=== PATIENT | female | born 1980 | race Caucasian/White ===

== ENCOUNTER → 2020-01-21 15:15 | Outpatient (BNVA) | payer MEDICAID, SELFPAY | PROVIDERS: PCP Nurse Practitioner Family; Visit Provider Psychiatry & Neurology Psychiatry | DX: F43.12 Post-traumatic stress disorder, chronic (principal); F33.2 Major depressive disorder, recurrent severe without psychotic features; F15.21 Other stimulant dependence, in remission; F10.21 Alcohol dependence, in remission | CPT/HCPCS: 99204 ==

== ENCOUNTER → 2020-07-15 11:58 | Outpatient (BNVA) | payer MEDICAID, SELFPAY | PROVIDERS: PCP Nurse Practitioner Family; Visit Provider Emergency Medicine | DX: M25.571 Pain in right ankle and joints of right foot (principal) | CPT/HCPCS: 73610; 73630 ==

== ENCOUNTER 2020-09-05 21:13 | Emergency (ER) | payer MEDICAID, SELFPAY ==
[2020-09-05 21:30] VITALS: BP 156/61; PULSE 104; RESP 14; TEMP 37.8; O2SAT 96; BMI 44.2
--- NOTE | 2020-09-05 22:25 | XR_ITS ---
WS: [id number] XR chest 1V portable [id number] REASON FOR EXAM: sob FINDINGS: The chest is unchanged compared to previous examination of 06/14/2017. The heart and mediastinum are within normal limits. No active pulmonary parenchymal or pleural disease noted. Multiple old healed left rib fractures. XR/XR chest 1V portable [id number] IMPRESSION: No acute chest abnormality.
--- NOTE | 2020-09-05 22:26 | ECG_ITS ---
[facility] Test Date: 2020-10-18 Pat Name: Yesi Valdivia Department: Room: Gender: Female Medical Collections: : [id number] Requested By: Levar Link Order Number: [id number] Tony MD: Emilia Hendrix M.D. Measurements Intervals [place] Rate: 77 P: 57 SC: 155 QRS: 10 QRSD: 100 T: 17 QT: 334 QTc: 378 Interpretive Statements SINUS RHYTHM WITH SINUS ARRHYTHMIA POSSIBLE RIGHT VENTRICULAR CONDUCTION DELAY [RSR (QR) IN V1/V2] Compared to ECG 03/25/2017 14:27:28 No significant changes Electronically Signed On 10-18-2020 20:29:40 DIRECTOR OUTCOMES by Emilia Hendrix M.D. [email or web address]
--- NOTE | 2020-09-05 22:55 | ED_ITS ---
HPI - COVID General: Chief Complaint: COVID symptoms Stated Complaint: covid symptom/sob/cough Time Seen by Provider: 09/05/20 22:51 Triage information: Has fever, cough or shortness of breath . No known COVID + exposure last 14 days History of Present Illness: HPI Narrative: Patient is a 40-year-old female comes to the ED with upper respiratory symptoms. She says symptoms started approximately 2 days ago. She is complaining of having a dry cough, fever, nasal drainage, nausea vomiting. She says that she has an inhaler at home, but lost it. COVID 19 common symptoms: positive fever(s), chills, non-productive cough, fatigue, body aches, nasal congestion and nausea; negative productive cough, dyspnea, headache(s), throat pain, vomiting or diarrhea COVID 19 other sytmptoms: negative chest pain COVID Results: Nasal/Oral Coronavirus 2019 PCR Pending 09/05/20 23:32 09/05/20 Review of Systems Const: Reports: fever(s), chills, body aches and fatigue Eyes: Denies: change in vision or eye discomfort ENMT: Reports: nasal discharge and nasal congestion; Denies: throat pain, odynophagia or ear or mastoid pain Card: Denies: chest pain, palpitations, edema, swelling of feet/ankles, dyspnea on exertion or orthopnea Resp: Reports: non-productive cough; Denies: dyspnea or productive cough GI: Reports: nausea; Denies: abdominal pain, vomiting, diarrhea, constipation or hematochezia : Denies: flank pain, dysuria or hematuria Musc: Denies: neck pain, back pain or extremity swelling Skin/Breast: Denies: rash or new lesions Neuro: Denies: headache(s), numbness in extremities or weakness in extremities PFSH ED PFSH: Social History Smoking and tobacco status: never smoked Alcohol intake: current Alcohol intake frequency: holidays/special occasions only Desire information about alcohol rehabilitation?: No History of recent travel: No Current gender identity: Female Female Reproductive History: Spontaneous abortions: No Physical Exam Const: COMMON NORMALS: patient oriented x3 and alert GENERAL APPEARANCE: cooperative NUTRITIONAL APPEARANCE: obese morbidly obese HENMT: COMMON NORMALS: normocephalic HEAD & SCALP: normocephalic MOUTH: Normal oral and palatal mucosa present THROAT: posterior oropharynx normal and uvula midline Eye: COMMON NORMALS: Equal, round and reactive pupils present PUPIL: Yes Equal, round and reactive pupils present Neck/C-Spine: COMMON NORMALS: supple GENERAL: Yes normal visual inspection Resp: COMMON NORMALS: normal respiratory effort, No retractions and No use of accessory muscles EFFORT & INSPECTION: Yes able to speak in complete sentences, No tachypneic, No respiratory distress, No labored and Yes Actively coughing dry AUSCULTATION: diminished lung sounds bilateral in the lower lung johns Cardio: COMMON NORMALS: regular rate, regular rhythm, S1 normal heart sound present, S2 normal heart sound present, No gallops present (Cardio), No clicks present (Cardio), No murmurs present (Cardio) and Peripheral pulses 2+ throughout RATE: regular rate RHYTHM: regular rhythm HEART SOUNDS: S1 normal heart sound present and S2 normal heart sound present PERIPHERAL PULSES: Peripheral pulses 2+ throughout GI: COMMON NORMALS: Normal to inspection, nondistended, normoactive bowel sounds present, Soft to palpation, non-tender and no masses INSPECTION: Yes central obesity PALPATION: Yes Soft to palpation : COMMON NORMALS: Yes no CVA tenderness BLADDER/KIDNEY EXAM: Yes no CVA tenderness Back/Pelvis: COMMON NORMALS: no CVA tenderness Extremity: COMMON NORMALS: normal to inspection and no pedal edema Neuro: COMMON NORMALS: patient oriented x3 and moves all extremities SENSORIUM/ORIENTATION: Yes alert Skin: GENERAL SKIN EXAM: dry skin Course Reevaluation(s): Reevaluation #1: Patient's lung sounds improved at the bases bilaterally after albuterol treatment. She also states she is feeling a lot better now that she is gotten some IV fluids. Vital Signs: Vital signs: Vital Signs Temperature 100.1 F H 09/05/20 21:30 Pulse Rate 105 H 09/06/20 01:40 Respiratory Rate 18 09/06/20 01:40 Blood Pressure 97/79 09/06/20 01:40 Pulse Oximetry 92 09/06/20 01:40 MDM - COVID MDM Narrative Medical decision making narrative: Patient is a 40-year-old female comes to the ED with upper respiratory infection symptoms. Lung sounds diminished at bases bilaterally. No signs of respiratory distress. White blood cell count 13.4 and rest of CBC and CMP was unremarkable. Troponin was negative. EKG showed normal sinus rhythm with no ST segment elevation or depression seen. hCG negative. Influenza negative and Covid testing pending. Patient was given an albuterol inhaler treatment while here in the ED and lung sounds improved afterwards. Patient given IV fluids, Solu-Medrol and first dose of azithromycin. Patient stable for discharge. Patient diagnosed with bronchitis and upper respiratory infection and sent home with a prescription of prednisone, azithromycin, Tessalon Perles, Zofran and albuterol inhaler. She was given self quarantine instructions and told that results should be back in 2 to 3 days. Return to ED precautions given. Patient understood and agree with plan. Lab Data Attestation: I reviewed the patient's lab results. Result diagrams: 09/06/20 00:05 09/06/20 00:05 Labs: Lab Results 09/05/20 09/05/20 09/06/20 Range/Units 21:16 23:32 00:05 WBC 13.4 H (4.0-10.0) 10^3/uL RBC 4.68 (4.1-5.3) 10^6/uL Hgb 12.6 (11.5-15.3) g/dL Hct 40.7 (37.0-47.0) % MCV 87.0 (81-99) fL MCH 26.9 L (28.0-34.0) pg MCHC 31.0 (30.0-36.0) g/dL RDW 15.0 (12.1-15.1) % Plt Count 619 H (130-400) 10^3/cmm MPV 10.6 H (7.4-10.4) fL Neut % (Auto) 69.0 % Lymph % (Auto) 18.0 % [place] % (Auto) 10.7 % Eos % (Auto) 1.5 % Baso % (Auto) 0.5 % Neut # (Auto) 9.22 H (1.8-7.7) 10^3/uL Lymph # (Auto) 2.4 (0.8-4.8) 10^3/uL [place] # (Auto) 1.4 H (0.2-0.9) 10^3/uL Eos # (Auto) 0.2 (0.0-0.8) 10^3/uL Baso # (Auto) 0.1 (0.0-0.1) 10^3/uL Nucleated RBC % (auto) 0 % Nucleated RBCs # 0.0 /100WBC Sodium (136-145) mmol/L Potassium (3.5-5.1) mmol/L Chloride (98-107) mmol/L Carbon Dioxide (22-29) mmol/L Anion Gap (5-19) BUN (6-20) mg/dL Creatinine (0.5-0.9) mg/dL GFR Calculation (90-130) mL/min Glucose (65-115) mg/dL Calculated Osmolality (285-295) mOsm/kg Calcium (8.5-10.5) mg/dL Total Bilirubin (0.15-1.2) mg/dL AST (0-32) U/L ALT (0-33) U/L Alkaline Phosphatase (35-105) IU/L Troponin T Baseline (0-10) ng/L NT-Pro-B Natriuret Pep Total Protein (6.6-8.7) g/dL Albumin (3.5-5.2) g/dL Globulin (1.3-4.6) g/dL HCG, Qual (Negative) Urine Color Yellow (Yellow) Urine Appearance Sl hazy (CLEAR) Urine pH 8 H (5-7) Ur Specific Sharon 1.005 (1.005-1.030) Urine Protein Neg (Negative) Urine Glucose (UA) Norm (Normal) Urine Ketones Negative (Negative) Urine Blood Neg (Negative) Urine Nitrate Negative (Negative) Urine Bilirubin Neg (Negative) Urine Urobilinogen Norm (Negative) mg/dL Ur Leukocyte Esterase Trace H (Negative) Urine RBC 0-4 H (0-2) /hpf Urine WBC 5-10 H (0-5) /hpf Ur Squamous Epith Cells 15-25 H (0-5) /hpf Amorphous Sediment Not Reportable Urine Bacteria Trace (NONE) /hpf Influenza Type A Ag Negative (Negative) Influenza Type B Ag Negative (Negative) 09/06/20 09/06/20 09/06/20 Range/Units 00:05 00:05 00:05 WBC (4.0-10.0) 10^3/uL RBC (4.1-5.3) 10^6/uL Hgb (11.5-15.3) g/dL Hct (37.0-47.0) % MCV (81-99) fL MCH (28.0-34.0) pg MCHC (30.0-36.0) g/dL RDW (12.1-15.1) % Plt Count (130-400) 10^3/cmm MPV (7.4-10.4) fL Neut % (Auto) % Lymph % (Auto) % [place] % (Auto) % Eos % (Auto) % Baso % (Auto) % Neut # (Auto) (1.8-7.7) 10^3/uL Lymph # (Auto) (0.8-4.8) 10^3/uL [place] # (Auto) (0.2-0.9) 10^3/uL Eos # (Auto) (0.0-0.8) 10^3/uL Baso # (Auto) (0.0-0.1) 10^3/uL Nucleated RBC % (auto) % Nucleated RBCs # /100WBC Sodium 134 L (136-145) mmol/L Potassium 4.4 (3.5-5.1) mmol/L Chloride 98 (98-107) mmol/L Carbon Dioxide 28 (22-29) mmol/L Anion Gap 12.4 (5-19) BUN 9 (6-20) mg/dL Creatinine 0.7 (0.5-0.9) mg/dL GFR Calculation 92.7 (90-130) mL/min Glucose 98 (65-115) mg/dL Calculated Osmolality 277 L (285-295) mOsm/kg Calcium 9.3 (8.5-10.5) mg/dL Total Bilirubin 0.2 (0.15-1.2) mg/dL AST 13 (0-32) U/L ALT 13 (0-33) U/L Alkaline Phosphatase 94 (35-105) IU/L Troponin T Baseline 6 (0-10) ng/L NT-Pro-B Natriuret Pep Cancelled Total Protein 7.6 (6.6-8.7) g/dL Albumin 3.6 (3.5-5.2) g/dL Globulin 4.0 (1.3-4.6) g/dL HCG, Qual Negative (Negative) Urine Color (Yellow) Urine Appearance (CLEAR) Urine pH (5-7) Ur Specific [place] (1.005-1.030) Urine Protein (Negative) Urine Glucose (UA) (Normal) Urine Ketones (Negative) Urine Blood (Negative) Urine Nitrate (Negative) Urine Bilirubin (Negative) Urine Urobilinogen (Negative) mg/dL Ur Leukocyte Esterase (Negative) Urine RBC (0-2) /hpf Urine WBC (0-5) /hpf Ur Squamous Epith Cells (0-5) /hpf Amorphous Sediment Urine Bacteria (NONE) /hpf Influenza Type A Ag (Negative) Influenza Type B Ag (Negative) COVID Results: Nasal/Oral Coronavirus 2019 PCR Pending 09/05/20 23:32 09/05/20 Imaging Data CXR: Attestation: I personally reviewed and interpreted this imaging study as follows: My impression: No acute findings. EKG Data EKG 1: Attestation: I personally reviewed and interpreted this EKG as follows: EKG interpretation date: 09/06/20 Interpretation: Normal sinus rhythm, [address] segment elevation or depression seen. Discharge Plan Discharge Patient Disposition: Home Clinical Impression: Bronchitis, Upper respiratory infection with cough and congestion Condition: Stable Prescriptions: New albuterol sulfate 90 mcg/actuation aerosol powdr breath activated 2 inh INHALATION Q6H PRN (Reason: shortness of breath or wheezing) Qty: 1 RF: 0 Medrol ([place]) 4 mg tablets,dose pack See Rx Instructions .ROUTE .COMPLEX Qty: 21 RF: 0 azithromycin 250 mg tablet 250 mg PO DAILY 4 Days Qty: 4 RF: 0 Zofran 4 mg tablet 4 mg PO Q8H Qty: 20 RF: 0 Tessalon Perles 100 mg capsule 100 mg PO BID PRN (Reason: cough) Qty: 30 RF: 0 No Action valsartan [Diovan] 40 mg tablet ? mg PO BID RF: 0 Latuda 20 mg tablet 10 mg PO .HS Qty: 15 RF: 2 naltrexone 50 mg tablet 50 mg PO DAILY Qty: 30 RF: 2 topiramate [Topamax] 25 mg tablet 25 mg PO BID Qty: 60 RF: 2 trazodone 50 mg tablet 50 mg PO .HS Qty: 30 RF: 2 mupirocin 2 % ointment 1 applic TOPICAL TID Qty: 15 RF: 1 Discharge Orders: Discharge Order (Routine); Ordered 09/06/20 Ordered By: Nikolay Ortega Discharge Diet: Regular Discharge Activity: Limit activity as instructed Patient Instructions: Upper Respiratory Infection (ED), Acute Bronchitis (ED) Activity Restrictions/Additional Instructions: Follow-up with medical provider as directed in 7-10 days. Take medications as prescribed. COVID testing was performed and sent to lab and results will be back in 2 to 3 days. Self quarantine for the next 3 days or up to 12 days pending on COVID testing results. Contact [facility] in 2 to 3 days to get results or [facility] will contact you with results. Take ibuprofen or Tylenol for fevers. Drink plenty of fluids and stay hydrated. Symptom management with [id number] cough and nasal decongestant meds. Return to the ER or your medical provider if condition worsens. Please read and understand discharge instructions. If any questions, please ask. Coding Level of Care Code ED Sprinkling System Irrigator for Heidi Fwd Exam Comprehensive
[2020-09-05 23:26] LABS: Add Urine Microscopic? YES; Bilirubin Urine Neg (Negative); Blood Urine Neg (Negative); Glucose Urine UA Norm (Normal); Ketones Urine Negative (Negative); Leukocyte Esterase Urine Trace (Negative); Nitrate Urine Negative (Negative); Protein Urine Neg (Negative); Specific Gravity, Urine 1.005 (1.005-1.030); Urine Appearance SL Hazy (CLEAR); Urine Color Yellow (Yellow); Urobilinogen Urine Norm (Negative); pH Urine 8 (5-7)
[2020-09-05 23:28] LABS: Add Urine Culture? No; Bacteria Urine TRACE /hpf; RBC Urine 0-4 /hpf (0-2); Squamous Epithelial Cell Urine 15-25 /hpf (0-5)
[2020-09-05 23:30] VITALS: BP 132/77; PULSE 83; RESP 18; O2SAT 92
[2020-09-05 23:58] VITALS: O2SAT 92
[2020-09-06] VITALS (21 sets, daily range): BP systolic 97–156; BP diastolic 74–88; PULSE 93–105; RESP 18–22; O2SAT 85–94
[2020-09-06 00:15] LABS: Influenza A by IFA Negative (Negative); Influenza B by IFA Negative (Negative)
[2020-09-06] MEDS: ondansetron 2 mg/ML SDV 2 mL 4 MG IVP (00:22)
[2020-09-06] MEDS: ibuprofen 600 mg Tablet PO (00:22)
[2020-09-06] MEDS: sodium chloride 0.9% 500 ML IV (00:22)
[2020-09-06 00:29] LABS: Basophils # 0.1 10^3/uL (0.0-0.1); Basophils % 0.5 %; Eosinophils # 0.2 10^3/uL (0.0-0.8); Eosinophils % 1.5 %; Hematocrit 40.7 % (37.0-47.0); Hemoglobin 12.6 g/dL (11.5-15.3); Lymphocytes # 2.4 10^3/uL (0.8-4.8); Mean Corpuscular Hemoglobin 26.9 pg (28.0-34.0); Mean Platelet Volume 10.6 fL (7.4-10.4); Monocytes # 1.4 10^3/uL (0.2-0.9); Monocytes % 10.7 %; Neutrophils # 9.22 10^3/uL (1.8-7.7); Nucleated Red Blood Cells % 0 %; Platelet Count 619 10^3/cmm (130-400); Red Blood Count 4.68 10^6/uL (4.1-5.3); White Blood Count 13.4 10^3/uL (4.0-10.0)
[2020-09-06] MEDS: albuterol 8 gm MDI 2 PUFF INHALATION (00:29)
[2020-09-06 00:37] LABS: HCG, Serum Qual Negative (Negative)
[2020-09-06 00:47] LABS: Troponin(5th) Baseline 6 ng/L (0-10)
[2020-09-06 00:56] LABS: Alanine Aminotransferase 13 U/L (0-33); Albumin Level 3.6 g/dL (3.5-5.2); Alkaline Phosphatase 94 IU/L (35-105); Anion Gap 12.4 (5-19); Aspartate Amino Transferase 13 U/L (0-32); Blood Urea Nitrogen 9 mg/dL (6-20); Calcium 9.3 mg/dL (8.5-10.5); Carbon Dioxide 28 mmol/L (22-29); Chloride 98 mmol/L (98-107); Glomerular Filtration Rate 92.7 mL/min (90-130); Glucose 98 mg/dL (65-115); Osmolality Calculated 277 mOsm/kg (285-295); Potassium 4.4 mmol/L (3.5-5.1); Sodium 134 mmol/L (136-145); Total Bilirubin 0.2 mg/dL (0.15-1.2); Total Protein 7.6 g/dL (6.6-8.7)
[2020-09-06] MEDS: azithromycin 250 mg Tablet 500 MG PO (01:30)
[2020-09-07 06:10] LABS: Coronavirus Lab Test PTC Negative
== END 2020-09-06 01:43 | disposition home or self-care (01) ==
PROVIDERS: Emergency Medicine; Emergency Provider Physician Assistant
DX: J40 Bronchitis, not specified as acute or chronic (principal); J06.9 Acute upper respiratory infection, unspecified
CPT/HCPCS: 12345; 36415; 71045; 80053; 81001; 84484; 84703; 85025; 87040; 87635; 87804; 93005; 94640; 96361; 96374; 96375; 99284; J2405; J2930; J3535; J7040; Q0144

== ENCOUNTER 2021-08-26 07:27 | Outpatient (CLI) | payer MEDICAID, SELFPAY | END 2021-08-26 07:28 | disposition home or self-care (01) | LOC: SLEEP 07:27 | PROVIDERS: Visit Provider Nurse Practitioner Family | DX: E66.01 Morbid (severe) obesity due to excess calories (principal); R06.83 Snoring; R40.0 Somnolence; G47.33 Obstructive sleep apnea (adult) (pediatric) | CPT/HCPCS: 95810 ==

== ENCOUNTER 2021-09-29 20:00 | Outpatient (CLI) | payer MEDICAID, SELFPAY | END 2021-09-29 20:01 | disposition home or self-care (01) | LOC: SLEEP 09-30 06:52 | PROVIDERS: PCP Nurse Practitioner Family; Visit Provider Internal Medicine Critical Care Medicine | DX: G47.33 Obstructive sleep apnea (adult) (pediatric) (principal) | CPT/HCPCS: 95811 ==

== ENCOUNTER → 2022-02-01 09:00 | Outpatient (BNVA) | payer MEDICAID, SELFPAY | PROVIDERS: PCP Nurse Practitioner Family; Visit Provider Internal Medicine Critical Care Medicine | DX: G47.33 Obstructive sleep apnea (adult) (pediatric) (principal); G47.34 Idiopathic sleep related nonobstructive alveolar hypoventilation; J45.909 Unspecified asthma, uncomplicated; E66.01 Morbid (severe) obesity due to excess calories; Z87.891 Personal history of nicotine dependence; I10 Essential (primary) hypertension | CPT/HCPCS: 99214 ==

== ENCOUNTER 2022-10-06 17:10 | Emergency (ER) | payer MEDICAID, SELFPAY ==
[2022-10-06 17:25] VITALS: BP 161/76; PULSE 110; RESP 16; TEMP 37.5; O2SAT 93; BMI 53.6
--- NOTE | 2022-10-06 18:47 | XRR_ITS ---
PROCEDURE INFORMATION: Exam: XR Chest Exam date and time: 10/06/2022 6:55 PM Age: 42 years old Clinical indication: Shortness of breath; Additional info: SOB TECHNIQUE: Imaging protocol: Radiologic exam of the chest. Views: 1 view. COMPARISON: CR XR chest 1V portable [id number] 09/05/2020 10:48 PM FINDINGS: Lungs: Unremarkable. No consolidation. Pleural spaces: Unremarkable. No pleural effusion. No pneumothorax. Heart/Mediastinum: Unremarkable. No cardiomegaly. Bones/joints: Unremarkable. XR/XR chest 1V portable [id number] IMPRESSION: No acute findings.
--- NOTE | 2022-10-06 18:49 | ED_ITS ---
HPI - General Adult General: Chief complaint: Upper Respiratory Infection Stated complaint: cough,SOB Time Seen by Provider: 10/06/22 18:44 Source: patient Mode of arrival: ambulatory Limitations: no limitations History of Present Illness: 42-year-old female who has had cough congestion along with fever over the last 2 days states she has had some shortness of breath with a cough. Has been nonproductive she had no sick contacts denies any worsening proving factors she denies any pain. Associated symptoms: Deny chest pain, headache(s), nausea, rash or vomiting Review of Systems Const: Reports: fever(s) and body aches Eyes: Denies: blurry vision or eye discomfort ENMT: Denies: throat pain or dental pain Card: Denies: chest pain Resp: Reports: non-productive cough GI: Denies: abdominal pain, nausea, vomiting or diarrhea : Denies: dysuria Musc: Denies: neck pain or back pain Skin/Breast: Denies: rash Neuro: Denies: headache(s) Psych: Denies: depression Wes/Lymph: Denies: easy bruising All/Imm: Denies: urticaria PFSH ED PFSH: Medical History Asthma Borderline diabetic Hypertension Obesity Surgical History H/O arthroscopic knee surgery H/O hernia repair H/O tubal ligation History of ankle surgery S/P appendectomy S/P cholecystectomy S/P tonsillectomy and adenoidectomy Social History Smoking and tobacco status: former smoker Alcohol intake: former Desire information about alcohol rehabilitation?: No History of recent travel: No Current gender identity: Female Female Reproductive History: Spontaneous abortions: No Physical Exam Const: COMMON NORMALS: no acute distress, patient oriented x3 and healthy appearing HENMT: COMMON NORMALS: normocephalic and atraumatic HEAD & SCALP: normocephalic and atraumatic Eye: COMMON NORMALS: Equal, round and reactive pupils present and EOMs intact bilaterally PUPIL: Yes Equal, round and reactive pupils present Neck/C-Spine: COMMON NORMALS: full ROM and supple Chest: COMMONS NORMALS: normal inspection of the chest and normal palpation of entire chest wall Resp: COMMON NORMALS: normal respiratory effort, No retractions, No use of accessory muscles and clear to auscultation bilaterally AUSCULTATION: clear to auscultation bilaterally Cardio: COMMON NORMALS: regular rate, regular rhythm and No murmurs present (Cardio) RATE: regular rate RHYTHM: regular rhythm GI: COMMON NORMALS: Normal to inspection, nondistended, normoactive bowel sounds present, Soft to palpation, non-tender and no masses PALPATION: Yes Soft to palpation Extremity: COMMON NORMALS: normal to inspection and full ROM Neuro: COMMON NORMALS: patient oriented x3, moves all extremities and no focal motor deficits Psych: COMMON NORMALS: mental status grossly normal, Normal thought process present and cooperative THOUGHT PROCESS: Normal thought process present Skin: COMMON NORMALS: no rashes or lesions noted and no wounds GENERAL SKIN EXAM: no rashes or lesions noted Course Vital Signs: Vital signs: Vital Signs Temperature 99.5 F 10/06/22 17:25 Pulse Rate 108 H 10/06/22 19:32 Respiratory Rate 18 10/06/22 19:30 Blood Pressure 161/76 10/06/22 17:25 Pulse Oximetry 91 10/06/22 19:30 Oxygen Delivery Me thod 10/06/22 19:30 MDM - General Adult Medical Decision Making Patient presents here with cough congestion did test positive for influenza she is well-appearing here she is in no distress she is stable for discharge she is to follow-up with PCP and return if worsening. Lab Data 10/06/22 19:09 10/06/22 19:09 Radiology Impressions Chest X-Ray 10/06/22 18:47 IMPRESSION: No acute findings. ADDENDUM: 10/06/221928 There is asymmetric prominence of the mediastinum along the right paratracheal region. This is a nonspecific finding and may be incidental, but was not seen on prior study. This can be further evaluated with CTA of the chest. Laboratory Results WBC 13.4 10^3/uL (4.0-10.0) H 10/06/22 19:09 RBC 4.73 10^6/uL (4.1-5.3) 10/06/22 19:09 Hgb 12.8 g/dL (11.5-15.3) 10/06/22 19:09 Hct 40.7 % (37.0-47.0) 10/06/22 19:09 MCV 86.0 fl (81-99) 10/06/22 19:09 MCH 27.1 pg (28.0-34.0) L 10/06/22 19:09 MCHC 31.4 g/dL (30.0-36.0) 10/06/22 19:09 RDW 15.9 % (12.1-15.1) H 10/06/22 19:09 Plt Count 554 10^3/cmm (130-400) H 10/06/22 19:09 MPV 10.2 fL (7.4-10.4) 10/06/22 19:09 Neut % (Auto) 80.8 % 10/06/22 19:09 Lymph % (Auto) 6.8 % 10/06/22 19:09 [place] % (Auto) 7.5 % 10/06/22 19:09 Eos % (Auto) 3.3 % 10/06/22 19:09 Baso % (Auto) 0.5 % 10/06/22 19:09 Neut # (Auto) 10.84 10^3/uL (1.8-7.7) H 10/06/22 19:09 Lymph # (Auto) 0.9 10^3/uL (0.8-4.8) 10/06/22 19:09 [place] # (Auto) 1.0 10^3/uL (0.2-0.9) H 10/06/22 19:09 Eos # (Auto) 0.4 10^3/uL (0.0-0.8) 10/06/22 19:09 Baso # (Auto) 0.1 10^3/uL (0.0-0.1) 10/06/22 19:09 Nucleated RBC % (auto) 0 % 10/06/22 19: Nucleated RBCs # 0.0 /100WBC 10/06/22 19:09 Sodium 138 mmol/L (136-145) 10/06/22 19:09 Potassium 3.8 mmol/L (3.5-5.1) 10/06/22 19:09 Chloride 104 mmol/L (98-107) 10/06/22 19:09 Carbon Dioxide 24 mmol/L (22-29) 12/09/22 19:09 Anion Gap 13.8 (5-19) 10/06/22 19:09 BUN 9 mg/dL (6-20) 10/06/22 19:09 Creatinine 0.6 mg/dL (0.5-0.9) 10/06/22 19:09 GFR Calculation 109.6 mL/min (90-130) 10/06/22 19:09 Glucose 87 mg/dL (65-115) 10/06/22 19:09 Calculated Osmolality 284 mOsm/kg (285-295) L 10/06/22 19:09 Calcium 9.4 mg/dL (8.5-10.5) 10/06/22 19:09 Total Bilirubin 0.2 mg/dL (0.15-1.2) 10/06/22 19:09 AST 11 U/L (0-32) 10/06/22 19:09 ALT 10 U/L (0-33) 10/06/22 19:09 Alkaline Phosphatase 83 U/L (35-105) 10/06/22 19:09 NT-Pro-B Natriuret Pep 136 pg/mL (0-125) H 10/06/22 19:09 Total Protein 8.1 g/dL (6.6-8.7) 10/06/22 19:09 Albumin 3.4 g/dL (3.5-5.2) L 10/06/22 19:09 Globulin 4.7 g/dL (1.3-4.6) H 10/06/22 19:09 Influenza Type A Ag positive (Negative) H 10/06/22 19:10 Influenza Type B Ag negative (Negative) 10/06/22 19:10 Discharge Plan Discharge Patient Disposition: Home Clinical Impression: Influenza Condition: Stable Prescriptions: No Action topiramate 50 mg tablet 50 mg PO BID norethindrone acetate 5 mg tablet 5 mg PO DAILY valsartan-hydrochlorothiazide 160-12.5 mg tablet 1 tab PO DAILY olanzapine 5 mg tablet 5 mg PO DAILY albuterol sulfate [ProAir HFA] 90 mcg/actuation HFA aerosol inhaler 2 puff inhalation Q6H PRN promethazine 6.25 mg/5 mL syrup 6.25 mg PO TID PRN Rx Instructions: 3 doses during day; last dose no later than 4 hr before bedtime fluticasone propionate [Flonase Allergy Relief] 50 mcg/actuation spray,suspension 1 spray intranasal Q12H 30 Days Qty: 16 6RF Rx Instructions: administer into each nostril Discharge Orders: Discharge ED (Routine); Ordered 10/06/22 Ordered By: Anthony Daniel Discharge Diet: Advance as tolerated Discharge Activity: Resume usual activity Patient Instructions: Influenza (ED) Coding Level of Care Code ED Counter Waitress/Waiter for Heidi Fwd Exam Comprehensive
[2022-10-06 19:15] LABS: Basophils # 0.1 10^3/uL (0.0-0.1); Basophils % 0.5 %; Eosinophils # 0.4 10^3/uL (0.0-0.8); Eosinophils % 3.3 %; Hematocrit 40.7 % (37.0-47.0); Hemoglobin 12.8 g/dL (11.5-15.3); Lymphocytes # 0.9 10^3/uL (0.8-4.8); Lymphocytes % 6.8 %; Mean Corpuscular HGB Conc 31.4 g/dL (30.0-36.0); Mean Corpuscular Hemoglobin 27.1 pg (28.0-34.0); Mean Platelet Volume 10.2 fL (7.4-10.4); Monocytes % 7.5 %; Neutrophils # 10.84 10^3/uL (1.8-7.7); Neutrophils % 80.8 %; Nucleated Red Blood Cells % 0 %; Platelet Count 554 10^3/cmm (130-400); Red Blood Count 4.73 10^6/uL (4.1-5.3); Red Cell Distribution Width 15.9 % (12.1-15.1); White Blood Count 13.4 10^3/uL (4.0-10.0)
[2022-10-06] MEDS: dexamethasone 10 mg/mL INJ IM (19:16)
[2022-10-06] MEDS: ipratropium-albuterol 3 mL Neb INHALATION (19:29)
[2022-10-06 19:30] VITALS: PULSE 108; RESP 18; O2SAT 91
[2022-10-06 19:32] VITALS: PULSE 108
[2022-10-06 19:42] LABS: Influenza A by IFA positive (Negative); Influenza B by IFA negative (Negative)
[2022-10-06 19:44] LABS: Alanine Aminotransferase 10 U/L (0-33); Albumin Level 3.4 g/dL (3.5-5.2); Alkaline Phosphatase 83 U/L (35-105); Anion Gap 13.8 (5-19); Aspartate Amino Transferase 11 U/L (0-32); Blood Urea Nitrogen 9 mg/dL (6-20); Calcium 9.4 mg/dL (8.5-10.5); Carbon Dioxide 24 mmol/L (22-29); Chloride 104 mmol/L (98-107); Globulin 4.7 g/dL (1.3-4.6); Glomerular Filtration Rate 109.6 mL/min (90-130); Glucose 87 mg/dL (65-115); NT Pro B Type Natriuretic Pept 136 pg/mL (0-125); Osmolality Calculated 284 mOsm/kg (285-295); Potassium 3.8 mmol/L (3.5-5.1); Sodium 138 mmol/L (136-145); Total Bilirubin 0.2 mg/dL (0.15-1.2); Total Protein 8.1 g/dL (6.6-8.7)
[2022-10-06 19:52] LABS: SARS Covid-2 Antigen negative (Negative)
[2022-10-06 20:00] VITALS: BP 144/100; PULSE 110; RESP 20; O2SAT 93
== END 2022-10-06 20:19 | disposition home or self-care (01) ==
PROVIDERS: Emergency Provider Emergency Medicine
DX: J11.1 Influenza due to unidentified influenza virus with other respiratory manifestations (principal); I10 Essential (primary) hypertension; Z87.891 Personal history of nicotine dependence; Z20.822 Contact with and (suspected) exposure to COVID-19
CPT/HCPCS: 36415; 71045; 80053; 83880; 85025; 87426; 87804; 94640; 96372; 99284; J1100